=== PATIENT | male | born 1950 | race Caucasian/White ===

== ENCOUNTER → 2022-01-28 | Emergency (ER) | payer OTHER ==
[~2022-01-28] VITALS: Ht 162.6 cm; Wt 68.0 kg
[2022-01-28 17:50] VITALS: BP 106/58
--- NOTE | 2022-01-28 18:32 | NUR ---
F/C D/C'D. PT TOLERATED PROCEDURE WELL. D/C IN STABLE CONDITION.
== END | disposition home or self-care (01) ==
LOC: ER 17:09
DX: Z46.6 Encounter for fitting and adjustment of urinary device (principal)

== ENCOUNTER 2024-02-11 11:43 | Emergency (ER) | payer OTHER, MEDICAID ==
[~2024-02-11] VITALS: Ht 175.3 cm; Wt 72.6 kg
[2024-02-11] MEDS ORDERED: ONDANSETRON HCL/PF 4 MG/2 ML VIAL ONE (13:24)
[2024-02-11] MEDS ORDERED: MORPHINE SULFATE INJ 4 MG/ML DISP.SYRIN ONE ×3 (13:24→20:19)
[2024-02-11] MEDS: MORPHINE SULFATE INJ 2 MG/ML DISP.SYRIN IV ONE ×2 (13:30→20:23)
[2024-02-11] MEDS: ONDANSETRON HCL/PF 4 MG/2 ML VIAL IVP ONE (13:30)
[2024-02-11] MEDS: IV NS 0.9% 500 ML BAG IV ONE (13:35)
[2024-02-11 13:52] LABS: BASOPHILS % (AUTO) 0.3 % (0.0-2.0); EOSINOPHILS # (AUTO) 0.1 K/uL (0.0-0.7); EOSINOPHILS % (AUTO) 1.2 % (0.0-6.0); HEMATOCRIT 41 % (39-51); HEMOGLOBIN 13.9 g/dL (13.5-17.5); LYMPHOCYTES # (AUTO) 1.5 K/uL (0.8-4.8); LYMPHOCYTES % (AUTO) 13.4 % (20.0-44.0); MEAN CORPUSCULAR HEMOGLOBIN 32 PG (26.0-33.0); MEAN CORPUSCULAR HGB CONC 34 g/dl (31.0-36.0); MEAN CORPUSCULAR VOLUME 95 fL (80-96); MONOCYTES # (AUTO) 1.2 K/uL (0.1-1.30); MONOCYTES % (AUTO) 10.5 % (2.0-12.0); NEUTROPHILS # (AUTO) 8.3 K/uL (1.8-8.9); NEUTROPHILS % (AUTO) 74.6 % (43.0-81.0); PLATELET COUNT (AUTO) 256 K/uL (150-450); RED BLOOD CELL COUNT(AUTO) 4.34 MIL/uL (4.5-6.0); RED CELL DISTRIBUTION WIDTH 13.6 % (11.5-15.0); WHITE BLOOD COUNT (AUTO) 11.1 K/uL (4.3-11.0)
[2024-02-11 14:01] LABS: CARBON DIOXIDE 26 mmol/L (21-32); CHLORIDE 103 mmol/L (98-107); CREATININE 1.2 mg/dL (0.6-1.3); GLUCOSE 115 mg/dL (74-106); SODIUM SERUM 137 mmol/L (136-145); UREA NITROGEN, BLOOD 16 mg/dL (7-18)
[2024-02-11 14:11] LABS: PARTIAL THROMBOPLASTIN TIME 23.4 SEC (24.3-34.3); PROTHROMBIN TIME 10.6 SECS (9.2-11.1)
[2024-02-11] MEDS: MORPHINE SULFATE INJ 10 MG/ML DISP.SYRIN IV ONE (15:30)
[2024-02-11 17:00] VITALS: TEMP 98.5
[2024-02-11 19:40] VITALS: BP 123/72; O2SAT 95
== END 2024-02-11 20:57 ==
LOC: ER 11:50
DX: S72.091A Other fracture of head and neck of right femur, initial encounter for closed fracture (principal); V29.49 Motorcycle driver injured in collision with other motor vehicles in traffic accident; Y93.89 Activity, other specified; Y92.488 Other paved roadways as the place of occurrence of the external cause; Y99.8 Other external cause status
CPT/HCPCS: 99285; 96374; 71045; 96375; 93005; 72170; 96376; 73552; 85025; 80048; 36415; 85730; J2270 ×4; J2405; J7040; A4223